=== PATIENT | female | born 1985 | race Caucasian/White ===

== ENCOUNTER 2020-02-14 18:56 | Emergency (ER) | payer OTHER ==
[~2020-02-14] VITALS: Ht 162.6 cm; Wt 70.3 kg
[2020-02-14 19:00] VITALS: BP 110/75
--- NOTE | 2020-02-14 19:39 | Emergency Room Report ---
History of Present Illness General Chief Complaint: Upper Respiratory Illness Source: Patient Present Illness HPI 35-year-old female with no significant past medical history here complaining of 2 days of cough and congestion, shortness of breath, and chest pressure. Denies any diarrhea, loss of taste and smell, sore throat. Had a Covid test done 1 week ago which results are still pending. Denies any drug use and alcohol intake. Reports that she smokes tobacco on daily basis. Denies any recent travel. Denies . Allergies: Coded Allergies: SULFA (SULFONAMIDE ANTIBIOTICS) (Verified Allergy, Unknown, 02/14/20) COVID-19 Screening Contact w/high risk pt: No Experienced COVID-19 symptoms?: Yes COVID-19 Testing performed CLAIMS ADJUSTOR: Yes COVID-19 Screening: PUI COVID-19 COVID-19 Testing Source: unk Patient History Past Medical History: see triage record Past Surgical History: none Pertinent Family History: none Social History: Reports: smoking Last Menstrual Period: 2 weeks Now: No Immunizations: UTD Reviewed Nursing Documentation: PMH: Agreed; PSxH: Agreed Nursing Documentation-PMH Past Medical History: No History, Except For Hx Asthma: Yes Review of Systems All Other Systems: negative except mentioned in HPI Physical Exam Vital Signs Date Time Temp Pulse Resp B/P (MAP) Pulse Ox O2 Delivery O2 Flow Rate FiO2 02/14/20 18:58 98.8 85 20 108/65 (79) 96 Room Air Sp02 EP Interpretation: reviewed, normal General Appearance: no apparent distress, alert, GCS 15, non-toxic Head: normocephalic, atraumatic Eyes: bilateral eye normal inspection, bilateral eye PERRL ENT: hearing grossly normal, normal pharynx, no angioedema, normal voice Neck: full range of motion, supple/symm/no masses Respiratory: chest non-tender, lungs clear, normal breath sounds, speaking full sentences Cardiovascular #1: regular rate, rhythm, no edema Cardiovascular #2: 2+ carotid (R), 2+ carotid (L), 2+ radial (R), 2+ radial (L), 2+ dorsalis pedis (R), 2+ dorsalis pedis (L) Gastrointestinal: normal bowel sounds, non tender, soft, non-distended, no guarding, no rebound Rectal: deferred Genitourinary: no CVA tenderness Musculoskeletal: back normal Neurologic: alert, motor strength/tone normal, oriented x3, sensory intact, responsive, speech normal Psychiatric: judgement/insight normal, memory normal, mood/affect normal, no suicidal/homicidal ideation Skin: no rash Lymphatic: no adenopathy Medical Decision Making PA Attestation All diagnoses and treatment plans were reviewed and discussed with my supervising physician Dr. Benson Diagnostic Impression: Primary Impression: URI (upper respiratory infection) ER Course 35-year-old female with no significant past medical history here complaining of 2 days of cough and congestion, shortness of breath, and chest pressure. Denies any diarrhea, loss of taste and smell, sore throat. Had a Covid test done 1 week ago which results are still pending. Denies any drug use and alcohol intake. Reports that she smokes tobacco on daily basis. Denies any recent travel. Denies . Ddx considered but are not limited to: bronchitis, PNA, URI viral, bacterial bronchitis Vital signs: are WNL, pt. is afebrile H&PE are most consistent with: URI ORDERS: CXR, EKG, azithromycin, prednisone, albuterol inhaler, Phenergan ED INTERVENTIONS: None required at this time. DISCHARGE: At this time pt. is stable for d/c to home. Will provide printed patient care instructions, and any necessary prescriptions. Care plan and follow up instructions have been discussed with the patient prior to discharge. Ad vised patient to follow primary care provider, wait for Covid results and quarantine herself, if worsening symptoms return to the emergency room EKG Diagnostic Results Rate: normal Rhythm: NSR ST Segments: no acute changes Other Impression No acute ST changes ASA given to the pt in ED: No PA Scribe Text At this time due to patient symptoms being most likely secondary to upper respiratory infection I do not believe that troponin needs to be ordered and EKG is within normal limits. Chest X-Ray Diagnostic Results Chest X-Ray Diagnostic Results : Chest X-Ray Ordered: Yes # of Views/Limited/Complete: 1 View Indication: Shortness of Breath EP Interpretation: Yes PA Xray: Interpretation reviewed, by supervising MD, and agrees with findings. Interpretation: no consolidation, no effusion, no pneumothorax, no acute cardiopulmonary disease Impression: No acute disease Electronically Signed by: Nahal Saheli PA-C Last Vital Signs Date Time Temp Pulse Resp B/P (MAP) Pulse Ox O2 Delivery O2 Flow Rate FiO2 02/14/20 18:58 98.8 85 20 108/65 (79) 96 Room Air Disposition: HOME, SELF-CARE Condition: Stable Scripts Promethazine Hcl (PROMETHAZINE HCL*) 6.25 Mg/5 Ml Syrup 5 ML ORAL Q8H, #120 ML 0 Refills Prov: Roberta Nicole 02/14/20 Albuterol Sulfate (VENTOLIN HFA) 18 Gm Hfa.aer.ad 2 PUFFS INH EVERY 6 HOURS, #18 GM 0 Refills Prov: Roberta Nicole 02/14/20 Prednisone* (PREDNISONE*) 20 Mg Tablet 40 MG ORAL DAILY for 5 Days, #10 TAB Prov: Roberta Nicole 02/14/20 Azithromycin* (ZITHROMAX*) 250 Mg Tablet 250 MG ORAL DAILY, #6 TAB 0 Refills Take two tables once daily for 1 day, then one tablet once daily for 4 days. Prov: Roberta Nicole 02/14/20 Patient Instructions: Upper Respiratory Infection, Adult Additional Instructions: Take medication as directed, self quarantine, wait for your Covid results, follow-up primary care provider, if worsening symptoms return to the emergency room Roberta Nicole Feb 14, 2020 19:39
[2020-02-14] MEDS ORDERED: ZITHROMAX250 MG ORAL (19:40)
[2020-02-14] MEDS ORDERED: VENTOLIN HFA18 GM INH (19:40)
[2020-02-14] MEDS ORDERED: PREDNISONE20 MG ORAL (19:40)
[2020-02-14] MEDS ORDERED: PROMETHAZI6.25 MG/1 ORAL (19:40)
[2020-02-14 19:52] VITALS: BP 118/76
--- NOTE | 2020-02-14 21:09 | Diagnostic Imaging Report ---
Indication: Shortness of breath Technique: One view of the chest Comparison: none Findings: Lungs and pleural spaces are clear. Heart size is normal. Impression: No acute process
== END 2020-02-14 19:52 | disposition home or self-care (01) ==
LOC: EMR 19:35
DX: J06.9 Acute upper respiratory infection, unspecified (principal); F17.200 Nicotine dependence, unspecified, uncomplicated; Z88.2 Allergy status to sulfonamides
CPT/HCPCS: 71045; 93005; Z7502; 99283